=== PATIENT | male | born 1980 | race African-American/Black ===

== ENCOUNTER 2017-12-14 10:42 | Inpatient (IN) | payer OTHER ==
[2017-12-14 11:07] VITALS: BMI 28.3
--- NOTE | 2017-12-14 13:12 | HP ---
CIWA Score - CIWA Score Nausea/Vomitin-Mild Nausea/No Vomiting Muscle Tremors: 4-Moderate,w/Arms Extend Anxiety: 4-Mod. Anxious/Guarded Agitation: 4-Moderately Restless Paroxysmal Sweats: 3 Orientation: 0-Oriented Tacttile Disturbances: 0-None Auditory Disturbances: 0-None Visual Disturbances: 0-None Headache: 2-Mild CIWA-Ar Total Score: 18 Admission ROS BHS - HPI Chief Complaint: I am here to get help. Allergies/Adverse Reactions: Allergies Allergy/AdvReac Type Severity Reaction Status Date / Time No Known Allergies Allergy Verified 12/14/17 11:38 History of Present Illness: pt is a 37yr old male with a history of alcohol, cocaine, xanax dependence seeking detox for treatment. Exam Limitations: No Limitations - Ebola screening Have you traveled outside of the country in the last 21 days: No (N) Have you had contact with anyone from an Ebola affected area: No Have you been sick,other than usual withdrawal symptoms: No Do you have a fever: No - Review of Systems Constitutional: Chills, Diaphoresis, Loss of Appetite, Night Sweats, Changes in sleep EENT: reports: Tearing Respiratory: reports: No Symptoms reported Cardiac: reports: Lightheadedness, Syncope GI: reports: Diarrhea, Nausea, Poor Appetite, Poor Fluid Intake, Indigestion : reports: No Symptoms Reported Musculoskeletal: reports: Back Pain, Joint Pain, Muscle Pain, Muscle Weakness Integumentary: reports: Flushing, Sweating Neuro: reports: Headache, Tingling, Tremors Endocrine: reports: Excessive Sweating, Flushing, Intolerance to Cold, Intolerance to Heat Hematology: reports: No Symptoms Reported Psychiatric: reports: Judgement Intact, Mood/Affect Appropiate, Orientated x3, Agitated, Anxious Other Systems: Reviewed and Negative Patient History - Patient Medical History Hx Anemia: No Hx Asthma: No Hx Chronic Obstructive Pulmonary Disease (COPD): No Hx Cancer: No Hx Cardiac Disorders: No Hx Congestive Heart Failure: No Hx Hypertension: Yes (not taking medication) Hx Hypercholesterolemia: No Hx Pacemaker: No HX Cerebrovascular Accident: No Hx Seizures: No Hx Dementia: No Hx Diabetes: No Hx Gastrointestinal Disorders: No Hx Liver Disease: No Hx Genitourinary Disorders: No Hx Sexually Transmitted Disorders: No Hx Renal Disease (ESRD): No Hx Thyroid Disease: No Hx Human Immunodeficiency Virus (HIV): No (negative) Hx Hepatitis C: No (negative) Hx Depression: No Hx Suicide Attempt: No Hx Bipolar Disorder: No Hx Schizophrenia: No - Patient Surgical History Past Surgical History: No Hx Neurologic Surgery: No Hx Cataract Extraction: No Hx Cardiac Surgery: No Hx Lung Surgery: No Hx Breast Surgery: No Hx Breast Biopsy: No Hx Abdominal Surgery: No Hx Appendectomy: No Hx Cholecystectomy: No Hx Genitourinary Surgery: No Hx Section: No Hx Orthopedic Surgery: No Anesthesia Reaction: No - PPD History Previous Implant?: Yes Documented Results: Positive w/o proof Implanted On Prior [facility] Admission?: Yes Date: 06/23/14 Results: CXR(-)12/04/17 PPD to be Administered?: No - Reproductive History Patient is a Female of Child Bearing Age (11 -55 yrs old): No Patient : No - Smoking Cessation Smoking history: Former smoker Have you smoked in the past 12 months: No If you are a former smoker, when did you quit?: at age 18 Hx Chewing Tobacco Use: No Initiated information on smoking cessation: No 'Breaking Loose' booklet given: 12/14/17 - Substance & Tx. History Hx Alcohol Use: Yes Hx Substance Use: Yes Substance Use Type: Alcohol, Cocaine, Prescribed Hx Substance Use Treatment: Yes (last detox [address] [facility]) - Substances Abused Cocaine Route: Inhalation Frequency: Daily Amount used: $20 Age of first use: 28 Date of Last Use: 12/14/17 Alochol-vodka Route: Oral Frequency: Daily Amount used: 2-3 pints Age of first use: 14 Date of Last Use: 12/14/17 Xanax Route: Inhalation Frequency: Daily Amount used: 4mg Age of first use: 29 Date of Last Use: 12/14/17 Family Disease History - Family Disease History Family History: Denies Admission Physical Exam BHS - Vital Signs Vital Signs: Vital Signs - 24 hr 12/14/17 11:04 Temperature 97.6 F Pulse Rate 83 Respiratory 18 Rate Blood Pressure 152/104 H - Physical General Appearance: Yes: Appropriately Dressed, Moderate Distress, Alcohol on Breath, Tremorous, Irritable, Sweating, Anxious HEENTM: Yes: Hearing grossly Normal, Normal Voice Respiratory: Yes: Lungs Clear, Normal Breath Sounds, No Respiratory Distress Neck: Yes: No masses,lesions,Nodules Breast: Yes: Within Normal Limits Cardiology: Yes: Regular Rhythm, Regular Rate, S1, S2 Abdominal: Yes: Normal Bowel Sounds, Non Tender, Soft Genitourinary: Yes: Within Normal Limits Back: Yes: Normal Inspection Musculoskeletal: Yes: full range of Motion, Back pain, Muscle Pain Extremities: Yes: Normal Capillary Refill, Normal Inspection, Non-Tender, Tremors Neurological: Yes: Fully Oriented, Alert, Normal Response Integumentary: Yes: Normal Color, Diaphoresis Lymphatic: Yes: Within Normal Limits - Diagnostic (1) Alcohol dependence with uncomplicated withdrawal Current Visit: Yes Status: Chronic (2) Xanax use disorder, severe, dependence Current Visit: Yes Status: Acute (3) Essential hypertension Current Visit: Yes Status: Chronic Cleared for Admission [facility] - Detox or Rehab [facility] Level of Care: Medically Managed Detox Regimen/Protocol: Librium [facility] Breath Alcohol Content Breath Alcohol Content: 0.114 Urine Drug Screen - Results Drug Screen Negative: No Urine Drug Screen Results: HUA-Cocaine, BZO-Benzodiazepines
[2017-12-14] MEDS ORDERED: IBUPROFEN 400 MG TABLET (FP) PO PRN (13:14)
[2017-12-14] MEDS ORDERED: ACETAMINOPHEN 325 MG TABLET (FP) PO PRN (13:14)
[2017-12-14] MEDS ORDERED: MAG HYDROX/AL HYDROX/SIMETH 30 ML UNIT-DOSE CUP PO PRN (13:14)
[2017-12-14] MEDS ORDERED: chlordiazePOXIDE HCL 25 MG CAPSULE PO PRN (13:14)
[2017-12-14] MEDS ORDERED: hydrOXYzine PAMOATE 50 MG CAPSULE (FP) PO PRN (13:14)
[2017-12-14] MEDS ORDERED: P-EPHED 60MG/TRIPROLIDI 2.5MG TABLET PO PRN (13:14)
[2017-12-14] MEDS ORDERED: MENTHOL/PHENOL 1 EACH UD MM PRN (13:14)
[2017-12-14] MEDS ORDERED: LOPERAMIDE HCL 2 MG CAPSULE PO PRN (13:14)
[2017-12-14] MEDS ORDERED: MAGNESIUM CITRATE 300 ML BOTTLE PO PRN (13:14)
[2017-12-14] MEDS ORDERED: guaiFENesin/D-METHORPHAN HB 10 ML UNIT-DOSE CUPS PO PRN (13:14)
[2017-12-14] MEDS ORDERED: MAGNESIUM HYDROX 2400MG/30ML ORAL SUSPENSION 30 ML CUP PO PRN (13:14)
[2017-12-14] MEDS ORDERED: chlordiazePOXIDE HCL 25 MG CAPSULE PO ONE (13:45)
--- NOTE | 2017-12-14 15:02 | EKG ---
Test Reason : Blood Pressure : / mmHG Vent. Rate : 089 BPM Atrial Rate : 089 BPM P-R Int : 148 ms QRS Dur : 082 ms QT Int : 342 ms P-R-T Axes : 068 065 047 degrees QTc Int : 416 ms NORMAL SINUS RHYTHM NORMAL ECG NO PREVIOUS ECGS AVAILABLE Confirmed by PHILIP FISHMAN MD ([id number]) on 12/14/2017 3:02:15 PM Referred By: Confirmed By:PHILIP FISHMAN MD
[2017-12-14] MEDS: chlordiazePOXIDE HCL 25 MG CAPSULE PO SCH ×2 (18:07→22:26)
[2017-12-14 18:27] LABS: URINE APPEARANCE CLEAR; URINE BILIRUBIN NEGATIVE (<2.0 mg/dL); URINE COLOR STRAW; URINE GLUCOSE (UA) NEGATIVE (NEGATIVE); URINE KETONE NEGATIVE (NEGATIVE); URINE LEUK ESTERASE NEGATIVE (NEGATIVE); URINE NITRITE NEGATIVE (NEGATIVE); URINE PROTEIN NEGATIVE (NEGATIVE); URINE UROBILINOGEN NEGATIVE mg/dL (0.2-1.0)
[2017-12-14] MEDS ORDERED: MELATONIN 5 MG TABLETS PO PRN (22:00)
[2017-12-14] MEDS ORDERED: THIAMINE HCL 100 MG TABLET (FP) PO SCH (22:00)
[2017-12-15] MEDS: chlordiazePOXIDE HCL 25 MG CAPSULE PO SCH (05:56)
[2017-12-15] MEDS ORDERED: PRENATAL VITAMINS W/ FOLIC ACID TABLET (FP) PO SCH (10:00)
[2017-12-15] MEDS ORDERED: diazePAM 5 MG TABLET PO SCH (10:02)
[2017-12-15] MEDS ORDERED: diazePAM 5 MG TABLET PO PRN (10:02)
[2017-12-15 10:06] LABS: HEMOGLOBIN 15.1 GM/dL (11.7-16.9); MCH 25.9 pg (25.7-33.7); MCHC 32.1 g/dl (32.0-35.9); MEAN CELL VOLUME 80.5 fl (80-96); MEAN PLT VOLUME 8.7 fl (7.5-11.1); PLATELET COUNT 265 K/MM3 (134-434); RBC 5.84 M/mm3 (4.00-5.60); RDW 13.1 % (11.9-15.9); WHITE BLOOD COUNT 6.8 K/mm3 (4.0-10.0)
[2017-12-15 10:40] LABS: ALBUMIN 4.2 g/dl (3.4-5.0); ALK PHOS 132 U/L (45-117); ANION GAP 11 MMOL/L (8-16); BILIRUBIN,TOTAL 0.4 mg/dL (0.2-1); BLOOD UREA NITROGEN 11 mg/dL (7-18); CALCIUM 9.4 mg/dL (8.5-10.1); CHLORIDE 109 mmol/L (98-107); CO2 23 mmol/L (21-32); CREATININE 1.3 mg/dL (0.55-1.3); GLUCOSE,RANDOM 101 mg/dL (74-106); SGOT/AST 25 U/L (15-37); SGPT/ALT 44 U/L (13-61); SODIUM 143 mmol/L (136-145); TOT PROT 8.1 g/dl (6.4-8.2)
--- NOTE | 2017-12-15 10:59 | PN ---
S CIWA - CIWA Score Nausea/Vomitin-Mild Nausea/No Vomiting Muscle Tremors: 4-Moderate,w/Arms Extend Anxiety: 3 Agitation: 4-Moderately Restless Paroxysmal Sweats: 3 Orientation: 0-Oriented Tacttile Disturbances: 0-None Auditory Disturbances: 0-None Visual Disturbances: 0-None Headache: 0-None Present CIWA-Ar Total Score: 15 BHS Progress Note (SOAP) Subjective: diarrhea sweats shakes irritable i want my regimen detox switched from librium to valium Objective: 12/15/17 10:49 Vital Signs Temperature 97.4 F L 12/15/17 10:00 Pulse Rate 73 12/15/17 10:00 Respiratory Rate 18 12/15/17 10:00 Blood Pressure 119/57 L 12/15/17 10:00 O2 Sat by Pulse Oximetry (%) Laboratory Tests 12/14/17 12/14/17 12/15/17 15:45 15:45 06:00 WBC 6.8 RBC 5.84 H Hgb 15.1 Hct 47.0 MCV 80.5 MCH 25.9 MCHC 32.1 RDW 13.1 Plt Count 265 D MPV 8.7 Sodium Potassium Chloride Carbon Dioxide Anion Gap BUN Creatinine Creat Clearance w eGFR Random Glucose Calcium Total Bilirubin AST ALT Alkaline Phosphatase Total Protein Albumin Urine Color Straw Urine Appearance Clear Urine pH 5.0 Ur Specific Crowder 1.005 L Urine Protein Negative Urine Glucose (UA) Negative Urine Ketones Negative Urine Blood Negative Urine Nitrite Negative Urine Bilirubin Negative Urine Urobilinogen Negative Ur Leukocyte Esterase Negative HIV 1&2 Antibody Screen Negative HIV P24 Antigen Negative 12/15/17 06:00 WBC RBC Hgb Hct MCV MCH MCHC RDW Plt Count MPV Sodium 143 Potassium 4.0 Chloride 109 H Carbon Dioxide 23 Anion Gap 11 BUN 11 Creatinine 1.3 Creat Clearance w eGFR > 60 Random Glucose 101 Calcium 9.4 Total Bilirubin 0.4 AST 25 ALT 44 Alkaline Phosphatase 132 H Total Protein 8.1 Albumin 4.2 Urine Color Urine Appearance Urine pH Ur Specific Crowder Urine Protein Urine Glucose (UA) Urine Ketones Urine Blood Urine Nitrite Urine Bilirubin Urine Urobilinogen Ur Leukocyte Esterase HIV 1&2 Antibody Screen HIV P24 Antigen aaox3 ambulating no acute distress Assessment: 12/15/17 10:58 Vital Signs Temperature 97.4 F L 12/15/17 10:00 Pulse Rate 73 12/15/17 10:00 Respiratory Rate 18 12/15/17 10:00 Blood Pressure 119/57 L 12/15/17 10:00 O2 Sat by Pulse Oximetry (%) Laboratory Tests 12/14/17 12/14/17 12/15/17 15:45 15:45 06:00 WBC 6.8 RBC 5.84 H Hgb 15.1 Hct 47.0 MCV 80.5 MCH 25.9 MCHC 32.1 RDW 13.1 Plt Count 265 D MPV 8.7 Sodium Potassium Chloride Carbon Dioxide Anion Gap BUN Creatinine Creat Clearance w eGFR Random Glucose Calcium Total Bilirubin AST ALT Alkaline Phosphatase Total Protein Albumin Urine Color Straw Urine Appearance Clear Urine pH 5.0 Ur Specific Crowder 1.005 L Urine Protein Negative Urine Glucose (UA) Negative Urine Ketones Negative Urine Blood Negative Urine Nitrite Negative Urine Bilirubin Negative Urine Urobilinogen Negative Ur Leukocyte Esterase Negative HIV 1&2 Antibody Screen Negative HIV P24 Antigen Negative 12/15/17 06:00 WBC RBC Hgb Hct MCV MCH MCHC RDW Plt Count MPV Sodium 143 Potassium 4.0 Chloride 109 H Carbon Dioxide 23 Anion Gap 11 BUN 11 Creatinine 1.3 Creat Clearance w eGFR > 60 Random Glucose 101 Calcium 9.4 Total Bilirubin 0.4 AST 25 ALT 44 Alkaline Phosphatase 132 H Total Protein 8.1 Albumin 4.2 Urine Color Urine Appearance Urine pH Ur Specific Crowder Urine Protein Urine Glucose (UA) Urine Ketones Urine Blood Urine Nitrite Urine Bilirubin Urine Urobilinogen Ur Leukocyte Esterase HIV 1&2 Antibody Screen HIV P24 Antigen aaox3 ambulating no acute distress Plan: continue detox increase fluids regimen switched as per pt request.
[2017-12-15 13:46] VITALS: BP 143/87; PULSE 70; TEMP 97.9
--- NOTE | 2017-12-15 14:08 | DS ---
[facility] Detox Discharge Summary Admission Date: 12/14/17 - History Present History: Alcohol Dependence - Physical Exam Results Vital Signs: Vital Signs Temperature 97.9 F 12/15/17 13:45 Pulse Rate 70 12/15/17 13:45 Respiratory Rate 18 12/15/17 13:45 Blood Pressure 143/87 12/15/17 13:45 O2 Sat by Pulse Oximetry (%) - Treatment Hospital Course: Responded well, Discharged Condition Good - Medication Discharge Medications: Ambulatory Orders NK [No Known Home Medication] 06/18/14 - Diagnosis (1) Alcohol dependence with uncomplicated withdrawal Current Visit: Yes Status: Chronic (2) Xanax use disorder, severe, dependence Current Visit: Yes Status: Acute (3) Essential hypertension Current Visit: Yes Status: Chronic - AMA Did Patient Leave Against Medical Advice: Yes (going home)
--- NOTE | 2017-12-15 14:08 | PN ---
S Progress Note Note: pt did not want to stay and signed out AMA. pt did not want to let me know why.
[2017-12-15] MEDS ORDERED: chlordiazePOXIDE HCL 25 MG CAPSULE PO SCH (17:00)
[2017-12-16] MEDS ORDERED: chlordiazePOXIDE 5 MG CAPSULE PO SCH (17:00)
[2017-12-17] MEDS ORDERED: diazePAM 5 MG TABLET PO SCH (10:00)
[2017-12-17] MEDS ORDERED: chlordiazePOXIDE HCL 10 MG CAPSULE PO SCH (17:00)
[2017-12-19] MEDS ORDERED: diazePAM 5 MG TABLET PO SCH (10:00)
== END 2017-12-15 13:50 | disposition left against medical advice (07) | DRG 770 ==
LOC: YASAS 10:42 → Y6N 13:12
PROC: HZ2ZZZZ Detoxification Services for Substance Abuse Treatment (ICD-10-PCS; principal; 2017-12-14)
DX: F10.230 Alcohol dependence with withdrawal, uncomplicated (principal); F13.230 Sedative, hypnotic or anxiolytic dependence with withdrawal, uncomplicated; F14.20 Cocaine dependence, uncomplicated; I10 Essential (primary) hypertension; Z87.891 Personal history of nicotine dependence; Z59.0 Homelessness
CPT/HCPCS: 36415; 80053; 81003; 85027; 86593; 87389; 93005; 93010

== ENCOUNTER 2019-11-12 12:27 | Inpatient (IN) | payer OTHER ==
--- NOTE | 2019-11-12 12:34 | BHS.RME ---
Substance Use & Tx History - Substance Use History Alcohol Substance amount: 3 pints vodka Frequency of use: Daily Substance route: Oral Date of Last Use: 11/11/19 Cocaine-Crack Substance amount: $40 Frequency of use: Daily Substance route: Inhalation (ex: sniffing or snorting), Smoking Date of Last Use: 11/12/19 Marijuana/Hashish Substance amount: $10 Frequency of use: Daily Substance route: Oral Date of Last Use: 11/10/19 Nicotine Substance amount: 1-2 ciggs Frequency of use: Daily Substance route: Smoking Date of Last Use: 11/12/19 Xanax Substance amount: 1mg 2 tab Frequency of use: Less than 3 times per week Substance route: Oral Date of Last Use: 11/08/19 - Last Treatment Date of last treatment: 12/14-12/15/17 left [facility] Treatment type: Substance Use Disorder ([place]) Where was last treatment: Detox Physical/Psych/Mental Status - Behavior General Behavior: Increased activity (restlessness, agitation) Eye Contact: Normal - Cooperativeness Cooperativeness: Cooperative - Thinking Thought Processes: Tight, Logical, Goal Directed - Physical Health Problems Is patient presently having any pain?: No Does patient presently have any injuries (include location): No Does patient currently have a fever: No Is patient : No CIWA Nausea/Vomitin Muscle Tremors: 3 Anxiety: 3 Agitation: 3 Paroxysmal Sweats: 3 Orientation: 1-Uncertain about Date Tacttile Disturbances: 0-None Auditory Disturbances: 0-None Visual Disturbances: 0-None Headache: 0-None Present CIWA-Ar Total Score: 15
--- NOTE | 2019-11-12 13:19 | HP ---
<Anay Nicholson - Last Filed: 11/12/19 13:22> CIWA Score Nausea/Vomitin Muscle Tremors: 3 Anxiety: 3 Agitation: 3 Paroxysmal Sweats: 3 Orientation: 1-Uncertain about Date Tacttile Disturbances: 0-None Auditory Disturbances: 0-None Visual Disturbances: 0-None Headache: 0-None Present CIWA-Ar Total Score: 15 - Admission Criteria OASAS Guidelines: Admission for Medically Managed Detox: Requires at least one of the followin. CIWA greater than 12 2. Seizures within the past 24 hours 3. Delirium tremens within the past 24 hours 4. Hallucinations within the past 24 hours 5. Acute intervention needed for co occurring medical disorder 6. Acute intervention needed for co occurring psychiatric disorder 7. Severe withdrawal that cannot be handled at a lower level of care (continued vomiting, continued diarrhea, abnormal vital signs) requiring intravenous medication and/or fluids 8. Admitting History and Physical - Smoking History Smoking history: Former smoker Have you smoked in the past 12 months: No If you are a former smoker, when did you quit?: at age 18 - Alcohol/Substance Use Hx Alcohol Use: Yes Admission ROS [facility] Chief Complaint: detox form alcohol Allergies/Adverse Reactions: Allergies Allergy/AdvReac Type Severity Reaction Status Date / Time No Known Allergies Allergy Verified 12/14/17 11:38 History of Present Illness: Patient is a 39 y/o male with no past medical history who presents for detox from alcohol. Patient started drinking alcohol at age 16. Patient was sober for 9 month at 2013. Patient drinks 3 pints of vodka every day. Patient endorses eyeopener, patient has blacked out before. Denies ever having a seizure. Patient has done detox/rehab at least 10 times in the past. Patient also uses cocaine, started at age 28 and uses 20 dollars a day. Uses cocaine every day. patient also uses xanax, reports takign a couple milligrams a day. Patient smokes 10 dollars with of marijuana every day. patient denies buying or being prescribed methadone, thinks it may be in his drugs he buys off the street. Patient smokes 2-3 cigarettes a day. - Substance Use History Alcohol Substance amount: 3 pints vodka Frequency of use: Daily Substance route: Oral Date of Last Use: 11/11/19 Cocaine-Crack Substance amount: $40 Frequency of use: Daily Substance route: Inhalation (ex: sniffing or snorting), Smoking Date of Last Use: 11/12/19 Marijuana/Hashish Substance amount: $10 Frequency of use: Daily Substance route: Oral Date of Last Use: 11/10/19 Nicotine Substance amount: 1-2 ciggs Frequency of use: Daily Substance route: Smoking Date of Last Use: 11/12/19 Xanax Substance amount: 1mg 2 tab Frequency of use: Less than 3 times per week Substance route: Oral Date of Last Use: 11/08/19 PMHX: none SGHX: none Social: homeless, no job. Patient meets criteria for inpatient detox from alcohol, CIWA of 15 and poor social environment. - Ebola screening Have you had contact with anyone from an Ebola affected area: No Have you been sick,other than usual withdrawal symptoms: No Do you have a fever: No - Review of Systems Constitutional: Other (denies fever and chills) EENT: denies: Blurred Vision, Tinnitus Respiratory: denies: Cough, Shortness of Breath, Wheezing Cardiac: denies: Chest Pain GI: denies: Constipated, Diarrhea, Nausea, Vomiting : denies: Dysuria Musculoskeletal: denies: Muscle Pain Neuro: denies: Headache, Numbness, Tingling Endocrine: denies: Flushing Hematology: denies: Anemia Psychiatric: denies: Anxious Patient History - Patient Medical History Hx Anemia: No Hx Asthma: No Hx Chronic Obstructive Pulmonary Disease (COPD): No Hx Cancer: No Hx Cardiac Disorders: No Hx Congestive Heart Failure: No Hx Hypertension: Yes (not taking medication) Hx Hypercholesterolemia: No Hx Pacemaker: No HX Cerebrovascular Accident: No Hx Seizures: No Hx Dementia: No Hx Diabetes: No Hx Gastrointestinal Disorders: No Hx Liver Disease: No Hx Genitourinary Disorders: No Hx Sexually Transmitted Disorders: No Hx Renal Disease (ESRD): No Hx Thyroid Disease: No Hx Human Immunodeficiency Virus (HIV): No (negative) Hx Hepatitis C: No (negative) Hx Depression: No Hx Suicide Attempt: No Hx Bipolar Disorder: No Hx Schizophrenia: No - Patient Surgical History Past Surgical History: No Hx Neurologic Surgery: No Hx Cataract Extraction: No Hx Cardiac Surgery: No Hx Lung Surgery: No Hx Breast Surgery: No Hx Breast Biopsy: No Hx Abdominal Surgery: No Hx Appendectomy: No Hx Cholecystectomy: No Hx Genitourinary Surgery: No Hx Section: No Hx Orthopedic Surgery: No Anesthesia Reaction: No - PPD History Date: 06/23/14 Results: CXR(-)12/04/17 - Smoking Cessation Smoking history: Former smoker Have you smoked in the past 12 months: No If you are a former smoker, when did you quit?: at age 18 Hx Chewing Tobacco Use: No - Substance & Tx. History Hx Alcohol Use: Yes Hx Substance Use: Yes Substance Use Type: Cocaine, Marijuana Admission Physical Exam [facility] - Physical General Appearance: Yes: Within Normal Limits HEENTM: Yes: Hearing grossly Normal, Normocephalic Respiratory: Yes: Normal Breath Sounds, No Respiratory Distress, No Accessory Muscle Use Neck: Yes: Within Normal Limits Breast: Yes: No masses Cardiology: Yes: Regular Rhythm, Regular Rate Abdominal: Yes: Normal Bowel Sounds, Non Tender, Flat Back: Yes: Normal Inspection Musculoskeletal: Yes: full range of Motion Extremities: Yes: Normal Range of Motion. No: Pedal Edema Neurological: Yes: Fully Oriented, Alert, Normal Mood/Affect, Normal Response - Diagnostic (1) Xanax use disorder, severe, dependence Current Visit: No Status: Acute (2) Alcohol dependence with uncomplicated withdrawal Current Visit: Yes Status: Chronic (3) Cocaine dependence Current Visit: No Status: Chronic Cleared for Admission [facility] - Detox or Rehab [facility] Level of Care: Medically Managed Detox Regimen/Protocol: Librium Breathalyzer - Breathalyzer Breathalyzer: 0.084 Vital Signs - Vital Signs Vital signs refused: No Temperature: 97.6 F Temperature source: Oral Pulse Rate: 101 Respiratory Rate: 14 Blood Pressure: 168/94 - Height Height: 5 ft 10 in - Weight Weight: 196 lb - BMI Body Mass Index (BMI): 28.1 Urine Drug Screen - Test Device Lot number: [id number] Expiration date: 06/11/21 - Control Is test valid?: Yes - Results Drug screen NEGATIVE: No Urine drug screen results: HUA-Cocaine, MTD-Methadone, BZO-Benzodiazepines Inpatient Rehab Admission - Rehab Decision to Admit Inpatient rehab admission?: No <Jaycee Diaz - Last Filed: 11/12/19 13:37> CIWA Score - Admission Criteria OASAS Guidelines: Admission for Medically Managed Detox: Requires at least one of the followin. CIWA greater than 12 2. Seizures within the past 24 hours 3. Delirium tremens within the past 24 hours 4. Hallucinations within the past 24 hours 5. Acute intervention needed for co occurring medical disorder 6. Acute intervention needed for co occurring psychiatric disorder 7. Severe withdrawal that cannot be handled at a lower level of care (continued vomiting, continued diarrhea, abnormal vital signs) requiring intravenous medication and/or fluids 8. Admitting History and Physical - Admission History of Present Illness: Daniel Goss Date: 1980 Address: [address] [place] [address] Sex: Male Rx Written Rx Dispensed Drug Quantity Days Supply Prescriber Name 11/16/2018 11/17/2018 chlordiazepoxide 25 mg capsule 15 5 Stefan Cronin Patient Name: Daniel Goss Date: 1980 Address: [address] [place] [id number] Sex: Male Rx Written Rx Dispensed Drug Quantity Days Supply Prescriber Name 01/07/2019 01/08/2019 chlordiazepoxide 10 mg capsule 6 2 Lyn Harding) 12/26/2018 12/29/2018 chlordiazepoxide 10 mg capsule 20 5 Lyn Harding) Patient Name: Daniel Goss Date: 1980 Address: [address] [place] [address] Sex: Male Rx Written Rx Dispensed Drug Quantity Days Supply Prescriber Name 10/09/2019 10/09/2019 chlordiazepoxide 10 mg capsule 55 4 Jamie Randle MD Admission Physical Exam BHS - Vital Signs Vital Signs: Vital Signs - 24 hr 11/12/19 13:25 Temperature 97.6 F Pulse Rate 101 H Respiratory 14 Rate Blood Pressure 168/94
[2019-11-12 13:22] VITALS: BMI 28.1
[2019-11-12] MEDS ORDERED: NICOTINE POLACRILEX 2 MG GUM BUC PRN (13:25)
[2019-11-12] MEDS ORDERED: IBUPROFEN 400 MG TABLET (FP) PO PRN (13:25)
[2019-11-12] MEDS ORDERED: MAGNESIUM HYDROX 2400MG/30ML ORAL SUSPENSION 30 ML CUP PO PRN (13:25)
[2019-11-12] MEDS ORDERED: METHOCARBAMOL 500 MG TABLET PO PRN (13:25)
[2019-11-12] MEDS ORDERED: chlordiazePOXIDE HCL 25 MG CAPSULE PO PRN (13:25)
[2019-11-12] MEDS ORDERED: ONDANSETRON *ODT* 4 MG TABLET SL PRN (13:25)
[2019-11-12] MEDS ORDERED: MENTHOL/PHENOL 1 EACH UD MM PRN (13:25)
[2019-11-12] MEDS ORDERED: ACETAMINOPHEN 325 MG TABLET (FP) PO PRN ×2 (13:25)
[2019-11-12] MEDS ORDERED: MAG HYDROX/AL HYDROX/SIMETH 30 ML UNIT-DOSE CUP PO PRN (13:25)
[2019-11-12] MEDS ORDERED: BISMUTH SUBSALICYLATE 524 MG/30 ML UD PO PRN (13:25)
[2019-11-12] MEDS ORDERED: MAGNESIUM CITRATE 300 ML BOTTLE PO PRN (13:25)
[2019-11-12] MEDS: PRENATAL VITAMINS W/ FOLIC ACID TABLET (FP) PO SCH (14:41)
[2019-11-12] MEDS: NICOTINE 7 MG/24 HOURS TOPICAL PATCH TD SCH (14:43)
[2019-11-12] MEDS: hydrOXYzine PAMOATE 25 MG CAPSULE (FP) PO SCH ×3 (14:43→23:48)
--- NOTE | 2019-11-12 16:02 | PN ---
Teaching Attending Note Name of Resident: Anay Nicholson ATTENDING PHYSICIAN STATEMENT I saw and evaluated the patient. I reviewed the resident's note and discussed the case with the resident. I agree with the resident's findings and plan as documented. SUBJECTIVE: OBJECTIVE: ASSESSMENT AND PLAN: ubstance Use History Alcohol Substance amount: 3 pints vodka Frequency of use: Daily Substance route: Oral Date of Last Use: 11/11/19 Cocaine-Crack Substance amount: $40 Frequency of use: Daily Substance route: Inhalation (ex: sniffing or snorting), Smoking Date of Last Use: 11/12/19 Marijuana/Hashish Substance amount: $10 Frequency of use: Daily Substance route: Oral Date of Last Use: 11/10/19 Nicotine Substance amount: 1-2 ciggs Frequency of use: Daily Substance route: Smoking Date of Last Use: 11/12/19 Xanax Substance amount: 1mg 2 tab Frequency of use: Less than 3 times per week Substance route: Oral Date of Last Use: 11/08/19 PMHX: none SGHX: none Social: homeless, no job. Imp 1. Alcohol withdrawal uncomplicated 2. Sedative use 3. Cocaine use disorder 4. Cannabis use disorder Plan 1. Librium detox protocol
[2019-11-12 17:23] LABS: HEMATOCRIT 45.9 % (35.4-49); HEMOGLOBIN 14.9 GM/dL (11.7-16.9); MCH 26.3 pg (25.7-33.7); MCHC 32.4 g/dl (32.0-35.9); MEAN CELL VOLUME 80.9 fl (80-96); MEAN PLT VOLUME 8.6 fl (7.5-11.1); PLATELET COUNT 254 K/MM3 (134-434); RBC 5.67 M/mm3 (4.00-5.60); RDW 14.3 % (11.9-15.9); WHITE BLOOD COUNT 7.4 K/mm3 (4.0-10.0)
[2019-11-12 17:31] LABS: BILIRUBIN,TOTAL 0.7 mg/dL (0.2-1); BLOOD UREA NITROGEN 11.4 mg/dL (7-18); CREATININE 1.6 mg/dL (0.55-1.3); POTASSIUM 3.6 mmol/L (3.5-5.1); TOT PROT 8.1 g/dl (6.4-8.2)
[2019-11-12] MEDS: chlordiazePOXIDE HCL 25 MG CAPSULE PO SCH ×2 (20:27→23:48)
[2019-11-12] MEDS: MELATONIN 5 MG TABLETS PO SCH (23:48)
[2019-11-12] MEDS: THIAMINE HCL 100 MG TABLET (FP) PO SCH (23:48)
[2019-11-13] MEDS: hydrOXYzine PAMOATE 25 MG CAPSULE (FP) PO SCH ×5 (05:37→22:30)
[2019-11-13] MEDS: chlordiazePOXIDE HCL 25 MG CAPSULE PO SCH ×4 (05:37→22:29)
[2019-11-13] MEDS: PRENATAL VITAMINS W/ FOLIC ACID TABLET (FP) PO SCH (10:05)
[2019-11-13] MEDS: NICOTINE 7 MG/24 HOURS TOPICAL PATCH TD SCH (10:05)
--- NOTE | 2019-11-13 14:30 | PN ---
S CIWA - CIWA Score Nausea/Vomitin-Mild Nausea/No Vomiting Muscle Tremors: 2 Anxiety: 3 Agitation: 2 Paroxysmal Sweats: 1-Minimal Palms Moist Orientation: 0-Oriented Tacttile Disturbances: 0-None Auditory Disturbances: 0-None Visual Disturbances: 2-Mild Sensitivity Headache: 1-Very Mild CIWA-Ar Total Score: 12 BHS Progress Note (SOAP) Subjective: 39 years old male was admitted on 11/12/19 for alcohol and benzo withdrawal sx management treating with librium detox regiment feels tired resting in bed limited conversation with staff positive ppd by history adds ppd positive in problem list discontinue PPD order chest x ray mr robles requests hiv testing Objective: 11/13/19 14:34 Vital Signs - 24 hr 11/12/19 11/13/19 11/13/19 20:59 06:30 09:06 Temperature 97.3 F L 97.0 F L 97.3 F L Pulse Rate 73 69 84 Respiratory 18 18 18 Rate Blood Pressure 123/71 114/76 137/99 O2 Sat by Pulse 95 97 Oximetry (%) Laboratory Tests 11/12/19 11/12/19 11/12/19 13:30 13:30 13:30 WBC 7.4 RBC 5.67 H Hgb 14.9 Hct 45.9 MCV 80.9 MCH 26.3 MCHC 32.4 RDW 14.3 Plt Count 254 MPV 8.6 Sodium 139 Potassium 3.6 Chloride 104 Carbon Dioxide 25 Anion Gap 11 BUN 11.4 Creatinine 1.6 H Est GFR (CKD-EPI)AfAm 61.98 Est GFR (CKD-EPI)NonAf 53.47 Random Glucose 92 Calcium 9.0 Total Bilirubin 0.7 AST 31 ALT 52 Alkaline Phosphatase 114 Total Protein 8.1 Albumin 4.0 Syphilis Serology Non-reactive HIV Ag/Ab Combo Qual 11/13/19 07:50 WBC RBC Hgb Hct MCV MCH MCHC RDW Plt Count MPV Sodium Potassium Chloride Carbon Dioxide Anion Gap BUN Creatinine Est GFR (CKD-EPI)AfAm Est GFR (CKD-EPI)NonAf Random Glucose Calcium Total Bilirubin AST ALT Alkaline Phosphatase Total Protein Albumin Syphilis Serology HIV Ag/Ab Combo Qual Negative covid pending 11/13/19 14:34 Assessment: 11/13/19 14:34 alcohol and benzo withdrawal Plan: librium regiment
[2019-11-13] MEDS: THIAMINE HCL 100 MG TABLET (FP) PO SCH (22:29)
[2019-11-13] MEDS: MELATONIN 5 MG TABLETS PO SCH (22:29)
[2019-11-14] MEDS: chlordiazePOXIDE HCL 25 MG CAPSULE PO SCH ×4 (06:20→22:04)
[2019-11-14] MEDS: hydrOXYzine PAMOATE 25 MG CAPSULE (FP) PO SCH ×5 (06:21→22:04)
[2019-11-14] MEDS: PRENATAL VITAMINS W/ FOLIC ACID TABLET (FP) PO SCH (10:32)
[2019-11-14] MEDS: NICOTINE 7 MG/24 HOURS TOPICAL PATCH TD SCH (10:33)
--- NOTE | 2019-11-14 14:53 | PN ---
S CIWA - CIWA Score Nausea/Vomitin-Mild Nausea/No Vomiting Muscle Tremors: 2 Anxiety: 2 Agitation: 2 Paroxysmal Sweats: No Perspiration Orientation: 0-Oriented Tacttile Disturbances: 0-None Auditory Disturbances: 0-None Visual Disturbances: 0-None Headache: 2-Mild CIWA-Ar Total Score: 9 BHS Progress Note (SOAP) Subjective: alert,irritable,anxious,interrupted sleep,tremor,aching pain Objective: 11/14/19 14:50 Vital Signs Temperature 98.0 F 11/14/19 12:52 Pulse Rate 79 11/14/19 12:52 Respiratory Rate 18 11/14/19 12:52 Blood Pressure 123/68 11/14/19 12:52 O2 Sat by Pulse Oximetry (%) 97 11/14/19 12:52 11/14/19 14:50 Laboratory Last Values WBC 7.4 K/mm3 (4.0-10.0) 11/12/19 13:30 RBC 5.67 M/mm3 (4.00-5.60) H 11/12/19 13:30 Hgb 14.9 GM/dL (11.7-16.9) 11/12/19 13:30 Hct 45.9 % (35.4-49) 11/12/19 13:30 MCV 80.9 fl (80-96) 11/12/19 13:30 MCH 26.3 pg (25.7-33.7) 11/12/19 13:30 MCHC 32.4 g/dl (32.0-35.9) 11/12/19 13:30 RDW 14.3 % (11.9-15.9) 11/12/19 13:30 Plt Count 254 K/MM3 (134-434) 11/12/19 13:30 MPV 8.6 fl (7.5-11.1) 11/12/19 13:30 Sodium 139 mmol/L (136-145) 11/12/19 13:30 Potassium 3.6 mmol/L (3.5-5.1) 11/12/19 13:30 Chloride 104 mmol/L (98-107) 11/12/19 13:30 Carbon Dioxide 25 mmol/L (21-32) 11/12/19 13:30 Anion Gap 11 MMOL/L (8-16) 11/12/19 13:30 BUN 11.4 mg/dL (7-18) 11/12/19 13:30 Creatinine 1.6 mg/dL (0.55-1.3) H 11/12/19 13:30 Est GFR (CKD-EPI)AfAm 61.98 11/12/19 13:30 Est GFR (CKD-EPI)NonAf 53.47 11/12/19 13:30 Random Glucose 92 mg/dL (74-106) 11/12/19 13:30 Calcium 9.0 mg/dL (8.5-10.1) 11/12/19 13:30 Total Bilirubin 0.7 mg/dL (0.2-1) 11/12/19 13:30 AST 31 U/L (15-37) 11/12/19 13:30 ALT 52 U/L (13-61) 11/12/19 13:30 Alkaline Phosphatase 114 U/L (45-117) 11/12/19 13:30 Total Protein 8.1 g/dl (6.4-8.2) 11/12/19 13:30 Albumin 4.0 g/dl (3.4-5.0) 11/12/19 13:30 Syphilis Serology Non-reactive (NONREACTIVE) 11/12/19 13:30 COVID-19 (RON) Not detected (Not Detected) 11/12/19 15:10 HIV Ag/Ab Combo Qual Negative (NEGATIVE) 11/13/19 07:50 creatinine 1.9, encourage fluid,hydration,will repeat bun,creatinine in am Assessment: 11/14/19 14:52 withdrawal symptom Plan: continue detox librium regimen,repeat bun,,creatinine in am
[2019-11-14] MEDS: THIAMINE HCL 100 MG TABLET (FP) PO SCH (22:04)
[2019-11-14] MEDS: MELATONIN 5 MG TABLETS PO SCH (22:04)
[2019-11-15] MEDS ORDERED: chlordiazePOXIDE HCL 10 MG CAPSULE PO PRN
[2019-11-15] MEDS: chlordiazePOXIDE HCL 10 MG CAPSULE PO SCH ×2 (08:02→10:41)
[2019-11-15] MEDS: hydrOXYzine PAMOATE 25 MG CAPSULE (FP) PO SCH ×3 (08:02→14:22)
[2019-11-15] MEDS: NICOTINE 7 MG/24 HOURS TOPICAL PATCH TD SCH (10:41)
[2019-11-15] MEDS: PRENATAL VITAMINS W/ FOLIC ACID TABLET (FP) PO SCH (10:41)
--- NOTE | 2019-11-15 10:51 | PN ---
S CIWA - CIWA Score Nausea/Vomitin-No Nausea/No Vomiting Muscle Tremors: 1-None Visible, but [place] Anxiety: 0-No Anxiety, at Ease Agitation: 0-Normal Activity Paroxysmal Sweats: 1-Minimal Palms Moist Orientation: 0-Oriented Tacttile Disturbances: 0-None Auditory Disturbances: 1-Very Mild Visual Disturbances: 1-Very Mild Sensitivity Headache: 0-None Present CIWA-Ar Total Score: 4 BHS Progress Note (SOAP) Subjective: Asking about labs, risk of HIV if recent contact Objective: 11/15/19 10:52 PE Gnl: WDWN, in no distress MS: nl mentation Motor: moves limbs well Coord: nl Laboratory Tests 11/12/19 11/12/19 11/12/19 13:30 13:30 13:30 WBC 7.4 RBC 5.67 H Hgb 14.9 Hct 45.9 MCV 80.9 MCH 26.3 MCHC 32.4 RDW 14.3 Plt Count 254 MPV 8.6 Sodium 139 Potassium 3.6 Chloride 104 Carbon Dioxide 25 Anion Gap 11 BUN 11.4 Creatinine 1.6 H Est GFR (CKD-EPI)AfAm 61.98 Est GFR (CKD-EPI)NonAf 53.47 Random Glucose 92 Calcium 9.0 Total Bilirubin 0.7 AST 31 ALT 52 Alkaline Phosphatase 114 Total Protein 8.1 Albumin 4.0 Syphilis Serology Non-reactive COVID-19 (RON) HIV Ag/Ab Combo Qual 11/12/19 11/13/19 15:10 07:50 WBC RBC Hgb Hct MCV MCH MCHC RDW Plt Count MPV Sodium Potassium Chloride Carbon Dioxide Anion Gap BUN Creatinine Est GFR (CKD-EPI)AfAm Est GFR (CKD-EPI)NonAf Random Glucose Calcium Total Bilirubin AST ALT Alkaline Phosphatase Total Protein Albumin Syphilis Serology COVID-19 (RON) Not detected HIV Ag/Ab Combo Qual Negative Home Medication List Medication Instructions Recorded Confirmed Type NK [No Known Home Medication] 06/18/14 11/12/19 History Active Medications Generic Name Dose Route Start Last Admin Trade Name Freq PRN Reason Stop Dose Admin Acetaminophen 650 mg 11/12/19 13:25 Tylenol - PO Q6H PRN PAIN LEVEL 4 - 6 Acetaminophen 650 mg 11/12/19 13:25 Tylenol - PO Q6H PRN FEVER Al Hydroxide/Mg Hydroxide 30 ml 11/12/19 13:25 Mylanta Oral Suspension - PO Q6H PRN DYSPEPSIA Bismuth Subsalicylate 524 mg 11/12/19 13:25 Pepto-Bismol - PO Q1H PRN DIARRHEA Chlordiazepoxide HCl 10 mg 11/15/19 05:00 11/15/19 10:41 Librium - PO 11/15/19 23:01 10 mg [id number] ERROL Administration Chlordiazepoxide HCl 10 mg 11/16/19 05:00 Librium - PO 11/16/19 17:01 Q12H ERROL Chlordiazepoxide HCl 10 mg 11/15/19 00:00 Librium - PO 11/16/19 00:00 Q4H PRN WITHDRAWAL(CONT SUBST) Chlordiazepoxide HCl 10 mg 11/17/19 05:00 Librium - PO 11/17/19 05:01 ONCE@0500 ONE Eucalyptus/Menthol/Phenol/Sorbitol 1 each 11/12/19 13:25 Cepastat Lozenge - MM 11/18/19 13:25 Q4H PRN SORE THROAT Hydroxyzine Pamoate 25 mg 11/12/19 14:00 11/15/19 10:41 Vistaril - PO 11/18/19 13:25 25 mg Q4HWA ERROL Administration Ibuprofen 400 mg 11/12/19 13:25 Motrin - PO Q6H PRN PAIN LEVEL 1 - 3 Magnesium Citrate 300 ml 11/12/19 13:25 Citroma - PO Q48H PRN CONSTIPATION Magnesium Hydroxide 30 ml 11/12/19 13:25 Milk Of Magnesia - PO PRN PRN CONSTIPATION Melatonin 5 mg 11/12/19 22:00 11/14/19 22:04 Melatonin PO 5 mg HS ERROL Administration Methocarbamol 500 mg 11/12/19 13:25 Robaxin - PO 11/18/19 13:25 Q6H PRN MUSCLE SPASMS Nicotine 7 mg 11/12/19 13:30 11/15/19 10:41 Nicoderm Patch - TD Not Given DAILY [facility] Nicotine Polacrilex 2 mg 11/12/19 13:25 Nicorette Gum - BUC Q2H PRN NICOTINE REPLACEMENT RX Ondansetron HCl 4 mg 11/12/19 13:25 Zofran Odt - SL Q8H PRN Nausea/Vomiting Multivit/Folic Acid/Iron 1 tab 11/12/19 13:30 11/15/19 10:41 Vitamins (Sjr) - PO 1 tab DAILY ERROL Administration Thiamine HCl 100 mg 11/12/19 22:00 11/14/19 22:04 Vitamin B1 - PO 100 mg HS ERROL Administration Vital Signs Temperature 97.5 F L 11/15/19 08:30 Pulse Rate 82 11/15/19 08:30 Respiratory Rate 18 11/15/19 08:30 Blood Pressure 149/95 11/15/19 08:30 O2 Sat by Pulse Oximetry (%) 96 11/15/19 06:06 Assessment: 11/15/19 10:48 Patient is a 39 y/o male with no past medical history who presented for detox from alcohol. Patient started drinking alcohol at age 16. Patient was sober for 9 month at 2012. Patient drinks 3 pints of vodka every day. Patient endorses eyeopener, patient has blacked out before. Denies ever having a seizure. Patient has done detox/rehab at least 10 times in the past. Patient also uses cocaine, started at age 28 and uses 20 dollars a day. Uses cocaine every day. patient also uses xanax, reports takign a couple milligrams a day. Patient smokes 10 dollars with of marijuana every day. patient denies buying or being prescribed methadone, thinks it may be in his drugs he buys off the street. Patient smokes 2-3 cigarettes a day. 1. Alcohol withdrawal uncomplicated 2. cocaine use disorder 3. cannabis use 4. Nicotine dependence 5. Sedative use disorder 6. Homeless Plan: 1. Librium detox protocol in effect, projected completion on 11/16 2. Nicoderm patch 3. Will extend discharge to 11/17, pt to go to [facility] on 11/[facility], discussed with porter sample case Tom
[2019-11-15 13:41] VITALS: BP 119/75; PULSE 76; TEMP 97.3
--- NOTE | 2019-11-15 16:46 | DS ---
[facility] Detox Discharge Summary Admission Date: 11/12/19 Discharge Date: 11/15/19 - History Additional Comments: Patient is leaving against medical advice. As per security, patient broke into his locker and was very disruptive on the floor. He refused to indicate reasons for his decision to leave and he refused to sign the AMA form. Patient was very disrespectful to staff. He is alert and oriented x 3, ambulates independently, not in acute distress at this time and vital signs stable. Risks and consequences of leaving against medical advice reinforced and patient verbalized understanding of instructions. Pertinent Past History: Alcohol dependence Opioid dependence Benzodiazepine dependence Hypertension PPD positive Cocaine dependence - Physical Exam Results Vital Signs: Vital Signs Temperature 97.3 F L 11/15/19 13:05 Pulse Rate 76 11/15/19 13:05 Respiratory Rate 18 11/15/19 13:05 Blood Pressure 119/75 11/15/19 13:05 O2 Sat by Pulse Oximetry (%) 96 11/15/19 13:05 Laboratory Last Values WBC 7.4 K/mm3 (4.0-10.0) 11/12/19 13:30 RBC 5.67 M/mm3 (4.00-5.60) H 11/12/19 13:30 Hgb 14.9 GM/dL (11.7-16.9) 11/12/19 13:30 Hct 45.9 % (35.4-49) 11/12/19 13:30 MCV 80.9 fl (80-96) 11/12/19 13:30 MCH 26.3 pg (25.7-33.7) 11/12/19 13:30 MCHC 32.4 g/dl (32.0-35.9) 11/12/19 13:30 RDW 14.3 % (11.9-15.9) 11/12/19 13:30 Plt Count 254 K/MM3 (134-434) 11/12/19 13:30 MPV 8.6 fl (7.5-11.1) 11/12/19 13:30 Sodium 139 mmol/L (136-145) 11/12/19 13:30 Potassium 3.6 mmol/L (3.5-5.1) 11/12/19 13:30 Chloride 104 mmol/L (98-107) 11/12/19 13:30 Carbon Dioxide 25 mmol/L (21-32) 11/12/19 13:30 Anion Gap 11 MMOL/L (8-16) 11/12/19 13:30 BUN 11.4 mg/dL (7-18) 11/12/19 13:30 Creatinine 1.6 mg/dL (0.55-1.3) H 11/12/19 13:30 Est GFR (CKD-EPI)AfAm 61.98 11/12/19 13:30 Est GFR (CKD-EPI)NonAf 53.47 11/12/19 13:30 Random Glucose 92 mg/dL (74-106) 11/12/19 13:30 Calcium 9.0 mg/dL (8.5-10.1) 11/12/19 13:30 Total Bilirubin 0.7 mg/dL (0.2-1) 11/12/19 13:30 AST 31 U/L (15-37) 11/12/19 13:30 ALT 52 U/L (13-61) 11/12/19 13:30 Alkaline Phosphatase 114 U/L (45-117) 11/12/19 13:30 Total Protein 8.1 g/dl (6.4-8.2) 11/12/19 13:30 Albumin 4.0 g/dl (3.4-5.0) 11/12/19 13:30 Syphilis Serology Non-reactive (NONREACTIVE) 11/12/19 13:30 COVID-19 (RON) Not detected (Not Detected) 11/12/19 15:10 HIV Ag/Ab Combo Qual Negative (NEGATIVE) 11/13/19 07:50 Pertinent Admission Physical Exam Findings: Alcohol dependence Heroin dependence Benzodiazepine dependence - Medication Discharge Medications: Ambulatory Orders NK [No Known Home Medication] 06/18/14 - Diagnosis (1) Positive PPD Current Visit: Yes Status: Chronic (2) Alcohol dependence with uncomplicated withdrawal Current Visit: Yes Status: Chronic (3) Alcohol dependence Current Visit: Yes Status: Chronic (4) Heroin dependence Current Visit: Yes Status: Chronic (5) Xanax use disorder, severe, dependence Current Visit: Yes Status: Chronic (6) Cocaine dependence Current Visit: Yes Status: Chronic (7) Essential hypertension Current Visit: No Status: Chronic - AMA Did Patient Leave Against Medical Advice: Yes
[2019-11-16] MEDS ORDERED: chlordiazePOXIDE HCL 10 MG CAPSULE PO SCH (05:00)
[2019-11-17] MEDS ORDERED: chlordiazePOXIDE HCL 10 MG CAPSULE PO ONE (05:00)
== END 2019-11-15 04:00 | disposition left against medical advice (07) | DRG 770 ==
LOC: YASAS 12:27 → Y3N 14:04
PROVIDERS: ADMIT Allergy & Immunology; ATTEND Allergy & Immunology
PROC: HZ2ZZZZ Detoxification Services for Substance Abuse Treatment (ICD-10-PCS; principal; 2019-11-12)
DX: F10.230 Alcohol dependence with withdrawal, uncomplicated (principal); F13.20 Sedative, hypnotic or anxiolytic dependence, uncomplicated; F14.20 Cocaine dependence, uncomplicated; F11.20 Opioid dependence, uncomplicated; F12.20 Cannabis dependence, uncomplicated; F17.211 Nicotine dependence, cigarettes, in remission; I10 Essential (primary) hypertension; R76.11 Nonspecific reaction to tuberculin skin test without active tuberculosis; Z59.0 Homelessness; Z56.0 Unemployment, unspecified
CPT/HCPCS: 36415; 71045-TC-FY; 80053; 85027; 86780; 87389; U0003

== ENCOUNTER 2021-02-21 10:41 | Inpatient (IN) | payer OTHER ==
[2021-02-21 11:16] VITALS: BMI 28.7
[2021-02-21] MEDS ORDERED: MAGNESIUM CITRATE 300 ML BOTTLE PO PRN (13:52)
[2021-02-21] MEDS ORDERED: METHOCARBAMOL 500 MG TABLET PO PRN (13:52)
[2021-02-21] MEDS ORDERED: MAG HYDROX/AL HYDROX/SIMETH 30 ML UNIT-DOSE CUP PO PRN (13:52)
[2021-02-21] MEDS ORDERED: BISMUTH SUBSALICYLATE 524 MG/30 ML PO PRN (13:52)
[2021-02-21] MEDS ORDERED: IBUPROFEN 400 MG TABLET (FP) PO PRN (13:52)
[2021-02-21] MEDS ORDERED: diazePAM 5 MG TABLET PO PRN (13:52)
[2021-02-21] MEDS ORDERED: ACETAMINOPHEN 325 MG TABLET (FP) PO PRN ×2 (13:52)
[2021-02-21] MEDS ORDERED: MENTHOL/PHENOL 1 EACH UD MM PRN (13:52)
[2021-02-21] MEDS ORDERED: MAGNESIUM HYDROX 2400MG/30ML ORAL SUSPENSION 30 ML CUP PO PRN (13:52)
[2021-02-21] MEDS ORDERED: ONDANSETRON *ODT* 4 MG TABLET SL PRN (13:52)
[2021-02-21] MEDS: hydrOXYzine PAMOATE 25 MG CAPSULE (FP) PO SCH ×3 (14:47→23:04)
[2021-02-21] MEDS: diazePAM 5 MG TABLET PO SCH ×2 (17:42→23:03)
[2021-02-21] MEDS: MELATONIN 5 MG TABLETS PO SCH (23:03)
[2021-02-21] MEDS: THIAMINE HCL 100 MG TABLET (FP) PO SCH (23:04)
[2021-02-22] MEDS: diazePAM 5 MG TABLET PO SCH ×4 (06:16→23:20)
[2021-02-22] MEDS: hydrOXYzine PAMOATE 25 MG CAPSULE (FP) PO SCH ×5 (06:17→23:20)
[2021-02-22 10:02] LABS: ALBUMIN 3.7 g/dl (3.4-5.0); BLOOD UREA NITROGEN 10.4 mg/dL (7-18); CALCIUM 8.8 mg/dL (8.5-10.1)
[2021-02-22 10:05] LABS: CREATININE 1.3 mg/dL (0.55-1.3)
[2021-02-22 10:07] LABS: BILIRUBIN,TOTAL 1.3 mg/dL (0.2-1); TOT PROT 7.4 g/dl (6.4-8.2)
[2021-02-22] MEDS: amLODIPine BESYLATE 5 MG TABLET (FP) PO SCH (11:11)
[2021-02-22] MEDS: PRENATAL VITAMINS W/ FOLIC ACID TABLET (FP) PO SCH (11:12)
[2021-02-22] MEDS ORDERED: diazePAM 5 MG TABLET PO PRN (11:16)
[2021-02-22 11:21] LABS: HEMATOCRIT 45.3 % (35.4-49); HEMOGLOBIN 14.9 GM/dL (11.7-16.9); MCH 26.4 pg (25.7-33.7); MEAN PLT VOLUME 8.4 fl (7.5-11.1); PLATELET COUNT 252 10^3/uL (134-434); RBC 5.66 M/mm3 (4.00-5.60)
[2021-02-22 11:43] LABS: HIV INTERPRETATION NEGATIVE (NEGATIVE)
[2021-02-22] MEDS: MELATONIN 5 MG TABLETS PO SCH (23:20)
[2021-02-22] MEDS: THIAMINE HCL 100 MG TABLET (FP) PO SCH (23:20)
[2021-02-23] MEDS ORDERED: diazePAM 5 MG TABLET PO SCH (06:00)
[2021-02-23] MEDS: hydrOXYzine PAMOATE 25 MG CAPSULE (FP) PO SCH ×5 (07:09→23:42)
[2021-02-23] MEDS: amLODIPine BESYLATE 5 MG TABLET (FP) PO SCH (10:10)
[2021-02-23] MEDS: PRENATAL VITAMINS W/ FOLIC ACID TABLET (FP) PO SCH (10:11)
[2021-02-23] MEDS: diazePAM 5 MG TABLET PO SCH ×2 (14:05→23:41)
[2021-02-23] MEDS: MELATONIN 5 MG TABLETS PO SCH (23:41)
[2021-02-23] MEDS: THIAMINE HCL 100 MG TABLET (FP) PO SCH (23:42)
[2021-02-24] MEDS: diazePAM 5 MG TABLET PO SCH ×2 (05:20→20:09)
[2021-02-24] MEDS: hydrOXYzine PAMOATE 25 MG CAPSULE (FP) PO SCH ×4 (05:21→20:09)
[2021-02-24] MEDS ORDERED: diazePAM 5 MG TABLET PO SCH (06:00)
[2021-02-24] MEDS: amLODIPine BESYLATE 5 MG TABLET (FP) PO SCH (10:23)
[2021-02-24] MEDS: PRENATAL VITAMINS W/ FOLIC ACID TABLET (FP) PO SCH (10:23)
[2021-02-25] MEDS: hydrOXYzine PAMOATE 25 MG CAPSULE (FP) PO SCH ×2 (00:07→06:25)
[2021-02-25] MEDS: MELATONIN 5 MG TABLETS PO SCH (00:07)
[2021-02-25] MEDS: THIAMINE HCL 100 MG TABLET (FP) PO SCH (00:08)
[2021-02-25] MEDS ORDERED: diazePAM 5 MG TABLET PO ONE ×2 (06:00)
[2021-02-25 09:20] VITALS: BP 143/96; PULSE 83; TEMP 97.5
== END 2021-02-25 09:04 | disposition home or self-care (01) | DRG 774 ==
LOC: YASAS 10:41 → Y6N 12:45
PROVIDERS: ADMIT Allergy & Immunology; ATTEND Allergy & Immunology
PROC: HZ2ZZZZ Detoxification Services for Substance Abuse Treatment (ICD-10-PCS; principal; 2021-02-21)
DX: F10.230 Alcohol dependence with withdrawal, uncomplicated (principal); F14.20 Cocaine dependence, uncomplicated; F15.10 Other stimulant abuse, uncomplicated; I10 Essential (primary) hypertension; Z86.11 Personal history of tuberculosis
CPT/HCPCS: 36415; 80053; 85027; 86780; 87389; 87811; C9803; U0003; U0005

== ENCOUNTER 2021-07-04 16:03 | Inpatient (IN) | payer OTHER ==
[2021-07-04 16:56] VITALS: BMI 27.8
[2021-07-04] MEDS ORDERED: BENZOCAINE/MENTHOL (CHLORASEPTIC ) LOZENGE MM PRN (19:56)
[2021-07-04] MEDS ORDERED: METHOCARBAMOL 500 MG TABLET PO PRN (19:56)
[2021-07-04] MEDS ORDERED: IBUPROFEN 400 MG TABLET (FP) PO PRN (19:56)
[2021-07-04] MEDS ORDERED: NICOTINE POLACRILEX 2 MG GUM BUC PRN (19:56)
[2021-07-04] MEDS ORDERED: ONDANSETRON *ODT* 4 MG TABLET SL PRN (19:56)
[2021-07-04] MEDS ORDERED: DICYCLOMINE HCL 10 MG CAPSULE PO PRN (19:56)
[2021-07-04] MEDS ORDERED: MAGNESIUM CITRATE 300 ML BOTTLE PO PRN (19:56)
[2021-07-04] MEDS ORDERED: BISMUTH SUBSALICYLATE 524 MG/30 ML PO PRN (19:56)
[2021-07-04] MEDS ORDERED: LOPERAMIDE HCL 2 MG CAPSULE PO PRN (19:56)
[2021-07-04] MEDS ORDERED: ACETAMINOPHEN 325 MG TABLET (FP) PO PRN ×2 (19:56)
[2021-07-04] MEDS ORDERED: chlordiazePOXIDE HCL 25 MG CAPSULE PO PRN (19:56)
[2021-07-04] MEDS ORDERED: MAGNESIUM HYDROX 2400MG/30ML ORAL SUSPENSION 30 ML CUP PO PRN (19:56)
[2021-07-04] MEDS ORDERED: chlordiazePOXIDE HCL 25 MG CAPSULE PO ONE (19:56)
[2021-07-04] MEDS ORDERED: MAG HYDROX/AL HYDROX/SIMETH 30 ML UNIT-DOSE CUP PO PRN (19:56)
[2021-07-04] MEDS ORDERED: MELATONIN 5 MG TABLETS PO PRN (20:03)
[2021-07-04] MEDS ORDERED: MELATONIN 5 MG TABLETS PO SCH (22:00)
[2021-07-04] MEDS ORDERED: THIAMINE HCL 100 MG TABLET (FP) PO SCH (22:00)
[2021-07-04] MEDS: chlordiazePOXIDE HCL 25 MG CAPSULE PO SCH (23:14)
[2021-07-05] MEDS: chlordiazePOXIDE HCL 25 MG CAPSULE PO SCH (05:00)
[2021-07-05 06:24] VITALS: BP 132/82; PULSE 103; TEMP 98.1
[2021-07-05] MEDS ORDERED: amLODIPine BESYLATE 5 MG TABLET (FP) PO SCH (10:00)
[2021-07-05] MEDS ORDERED: PRENATAL VITAMINS W/ FOLIC ACID TABLET (FP) PO SCH (10:00)
[2021-07-06] MEDS ORDERED: chlordiazePOXIDE HCL 25 MG CAPSULE PO SCH (05:00)
[2021-07-07] MEDS ORDERED: chlordiazePOXIDE HCL 10 MG CAPSULE PO PRN
[2021-07-07] MEDS ORDERED: chlordiazePOXIDE HCL 10 MG CAPSULE PO SCH (05:00)
[2021-07-08] MEDS ORDERED: chlordiazePOXIDE HCL 10 MG CAPSULE PO SCH (05:00)
[2021-07-09] MEDS ORDERED: chlordiazePOXIDE HCL 10 MG CAPSULE PO ONE (05:00)
== END 2021-07-05 06:27 | disposition home or self-care (01) | DRG 774 ==
LOC: YASAS 16:03 → Y6N 19:10
PROVIDERS: ADMIT Allergy & Immunology; ATTEND Allergy & Immunology
PROC: HZ2ZZZZ Detoxification Services for Substance Abuse Treatment (ICD-10-PCS; principal; 2021-07-04)
DX: F10.230 Alcohol dependence with withdrawal, uncomplicated (principal); F13.230 Sedative, hypnotic or anxiolytic dependence with withdrawal, uncomplicated; F14.20 Cocaine dependence, uncomplicated; F15.20 Other stimulant dependence, uncomplicated; F17.210 Nicotine dependence, cigarettes, uncomplicated; H55.00 Unspecified nystagmus; I10 Essential (primary) hypertension; Z86.11 Personal history of tuberculosis
CPT/HCPCS: 93005; 93010; C9803-CS; U0003; U0005

== ENCOUNTER 2021-08-01 08:49 | Inpatient (IN) | payer OTHER ==
[2021-08-01] MEDS ORDERED: MAGNESIUM HYDROX 2400MG/30ML ORAL SUSPENSION 30 ML CUP PO PRN (09:42)
[2021-08-01] MEDS ORDERED: MAG HYDROX/AL HYDROX/SIMETH 30 ML UNIT-DOSE CUP PO PRN (09:42)
[2021-08-01] MEDS ORDERED: MELATONIN 5 MG TABLETS PO PRN (09:42)
[2021-08-01] MEDS ORDERED: MAGNESIUM CITRATE 300 ML BOTTLE PO PRN (09:42)
[2021-08-01] MEDS ORDERED: ONDANSETRON *ODT* 4 MG TABLET SL PRN (09:42)
[2021-08-01] MEDS ORDERED: IBUPROFEN 400 MG TABLET (FP) PO PRN (09:42)
[2021-08-01] MEDS ORDERED: LOPERAMIDE HCL 2 MG CAPSULE PO PRN (09:42)
[2021-08-01] MEDS ORDERED: ACETAMINOPHEN 325 MG TABLET (FP) PO PRN ×2 (09:42)
[2021-08-01] MEDS ORDERED: BENZOCAINE/MENTHOL (CHLORASEPTIC ) LOZENGE MM PRN (09:42)
[2021-08-01] MEDS ORDERED: BISMUTH SUBSALICYLATE 524 MG/30 ML PO PRN (09:42)
[2021-08-01] MEDS ORDERED: DICYCLOMINE HCL 10 MG CAPSULE PO PRN (09:42)
[2021-08-01] MEDS ORDERED: PRENATAL VITAMINS W/ FOLIC ACID TABLET (FP) PO SCH (10:00)
[2021-08-01] MEDS ORDERED: amLODIPine BESYLATE 5 MG TABLET (FP) PO SCH (10:00)
[2021-08-01 10:30] VITALS: BMI 27.2
[2021-08-01] MEDS: hydrOXYzine PAMOATE 25 MG CAPSULE (FP) PO PRN ×2 (12:45→22:34)
[2021-08-01] MEDS: METHOCARBAMOL 500 MG TABLET PO PRN ×2 (12:45→22:34)
[2021-08-01] MEDS ORDERED: THIAMINE HCL 100 MG TABLET (FP) PO SCH (22:00)
[2021-08-02 09:20] VITALS: BP 134/79; PULSE 86; TEMP 96.9
== END 2021-08-02 10:48 | disposition home or self-care (01) | DRG 774 ==
LOC: YASAS 08:49 → Y6N 12:06
PROVIDERS: ADMIT Allergy & Immunology; ATTEND Surgery
PROC: HZ2ZZZZ Detoxification Services for Substance Abuse Treatment (ICD-10-PCS; principal; 2021-08-01)
DX: F10.230 Alcohol dependence with withdrawal, uncomplicated (principal); F14.20 Cocaine dependence, uncomplicated; F15.20 Other stimulant dependence, uncomplicated; F17.200 Nicotine dependence, unspecified, uncomplicated; I10 Essential (primary) hypertension; Z86.11 Personal history of tuberculosis
CPT/HCPCS: C9803-CS; U0003; U0005